=== PATIENT | female | born 1990 | race Caucasian/White ===

== ENCOUNTER 2023-11-01 08:27 | Emergency (ER) | payer SELFPAY ==
[~2023-11-01] VITALS: Ht 160 cm; Wt 59.0 kg
[2023-11-01 08:29] VITALS: O2SAT 98
[2023-11-01] MEDS: HALOPERIDOL LACTATE 5MG/ML VIAL IM ONE (13:57)
[2023-11-01] MEDS: LORAZEPAM 2MG/ML INJ IM ONE (13:57)
[2023-11-01 14:52] LABS: BASOPHILS % 0.3 % (0.0-2.0); EOSINOPHILS % 1.6 % (0.0-5.0); HEMATOCRIT. 32.8 % (36.0-48.0); HEMOGLOBIN. 10.7 g/dL (12.0-16.0); MEAN CORPUSCULAR HGB CONC 32.6 g/dL (31.0-37.0); MEAN CORPUSCULAR VOLUME 82.8 fL (81.0-99.0); MEAN PLATELET VOLUME 6.1 fl (7.4-10.4); MONOCYTES % 5.6 % (2.0-8.0); NEUTROPHILS % 74.5 % (40.0-76.0); PLATELET 403 x1000/uL (130-400); RED BLOOD CELL COUNT 3.96 mill/uL (4.2-5.4); RED CELL DISTRIBUTION WIDTH 18.6 % (11.6-14.6)
[2023-11-01 14:58] LABS: CHLORIDE 112 mEq/L (98-107)
[2023-11-01 14:59] LABS: CARBON DIOXIDE 23 mEq/L (21-32); POTASSIUM 3.1 mEq/L (3.5-5.1); SODIUM 148 mEq/L (136-145)
[2023-11-01 15:00] LABS: CALCIUM 9.2 mg/dL (8.7-10.4)
[2023-11-01 15:01] LABS: HCG SCREEN NEGATIVE
[2023-11-01 15:04] LABS: CREATININE 0.5 mg/dL (0.6-1.0); GLUCOSE 94 mg/dL (70-105)
[2023-11-01 15:05] LABS: UREA NITROGEN BLOOD 15 mg/dL (9-23)
[2023-11-01 15:06] LABS: ACETAMINOPHEN < 2 ug/mL (10-30); ALANINE AMINOTRANSFERASE 13 IU/L (10-49); ALBUMIN 3.9 g/dL (3.2-4.8); ASPARTATE AMINOTRANSFERASE 36 IU/L (<34)
[2023-11-01 15:07] LABS: BILIRUBIN DIRECT 0.3 mg/dL (<=3.0); BILIRUBIN TOTAL 0.9 mg/dL (0.1-1.0); PROTEIN TOTAL 6.9 g/dL (6.0-8.3)
[2023-11-01 15:31] LABS: ETHANOL BLOOD < 10 mg/dL (<10)
[2023-11-01] MEDS ORDERED: POTASSIUM CHLORIDE 20MEQ/PACKET PO ONE (15:45)
[2023-11-01] MEDS: POTASSIUM CHLORIDE 20MEQ/PACKET PO NR (18:09)
[2023-11-03 06:13] VITALS: TEMP 98.3
[2023-11-03 11:40] VITALS: BP 124/78; PULSE 76; RESP 16
== END 2023-11-03 12:40 | disposition home or self-care (01) ==
LOC: ER 08:39
DX: R45.1 Restlessness and agitation (principal); F17.210 Nicotine dependence, cigarettes, uncomplicated; Z20.822 Contact with and (suspected) exposure to COVID-19
CPT/HCPCS: 80076; 80048; 80307; 80329; 80320; 84703; 83735; 85025; 36415; 96372; 99285; 87426; J1630; J2060; G0480